=== PATIENT | female | born 1990 | race Caucasian/White ===

== ENCOUNTER 2017-07-19 19:22 | Emergency (ER) | payer MEDICAID ==
[~2017-07-19] VITALS: Ht 144.8 cm; Wt 53.1 kg
[2017-07-19 19:51] VITALS: BP 104/58
[2017-07-19 20:36] LABS: Basophils # (auto) 0 uL; Basophils % (auto) 0.2 % (0.0-2.0); Eosinophils # (auto) 0 uL; Eosinophils % (auto) 0.2 % (0.0-7.0); Hemoglobin 14.1 g/dL (12.2-16.2); Lymphocytes # (auto) 2.3 uL; Lymphocytes % (auto) 31.7 % (10.0-50.0); Mean Corpuscular Hemoglobin 30.9 pg (28.0-32.0); Mean Corpuscular Hgb Conc. 33.6 g/dL (32.0-36.0); Mean Corpuscular Volume 91.8 fL (80.0-100.0); Mean Platelet Volume 8.6 fL (6.9-10.8); Monocytes # (auto) 0.5 uL; Monocytes % (auto) 6.5 % (0.0-12.0); Neutrophils # (auto) 4.5 uL; Neutrophils % (auto) 61.4 % (37.0-80.0); Nucleated Red Blood Cells % 0.2 %; Platelet Count (auto) 212 10^3/uL (140-450); Red Cell Distribution Width 12.8 % (11.8-14.3); White Blood Cell 7.3 10^3/uL (4.4-10.8)
[2017-07-19 20:54] LABS: Albumin 4.3 g/dL (3.4-5.0); BUN/Creatinine Ratio 9.8; Calcium 8.9 mg/dL (8.5-10.1); Potassium 3.7 mmol/L (3.5-5.1)
[2017-07-19 20:56] LABS: Bilirubin, Total 1.4 mg/dL (0.2-1.0); Total Protein 8.5 g/dL (6.4-8.2)
[2017-07-19 22:22] LABS: Urine Bilirubin Negative (Negative); Urine Blood TRACE /uL (Negative); Urine Color Yellow (Yellow); Urine Glucose Normal (Normal); Urine Ketone 1+ (Negative); Urine Mucus MODERATE (None Seen); Urine Nitrite Negative (Negative); Urine RBC 1 /hpf (0 - 4); Urine Squamous Epithelial Cell MOD /hpf (<5); Urine Urobilinogen Normal (Negative); Urine pH 5.5 (5.0-8.0)
[2017-07-20] MEDS ORDERED: SODIUM CHLORIDE 0.9% 1,000 ML IV ONE (00:45)
[2017-07-20] MEDS ORDERED: HYDROmorphone HCL 2 MG/ML VL IV ONE (00:45)
[2017-07-20] MEDS ORDERED: ONDANSETRON HCL 4 MG/2 ML VIAL IV ONE ×2 (00:45→02:15)
[2017-07-20] MEDS ORDERED: PROMETHAZINE HCL 25 MG/ML 1ML IV ONE (02:30)
== END 2017-07-20 03:16 | disposition home or self-care (01) ==
LOC: ER 19:30
DX: N83.201 Unspecified ovarian cyst, right side (principal); K59.00 Constipation, unspecified
CPT/HCPCS: 36415; 74176; 80053; 81001; 81025; 82150; 83690; 85025; 96361; 96374; 96375; 96376; 99285; J1170; J2405; J2550; J7030

== ENCOUNTER 2021-09-10 17:39 | Emergency (ER) | payer MEDICAID ==
[~2021-09-10] VITALS: Ht 144.8 cm; Wt 53.1 kg
[2021-09-10 17:47] VITALS: BP 134/78
[2021-09-10 19:31] LABS: Urine Bacteria NONE SEEN /hpf (None Seen); Urine Blood 1+ /uL (Negative); Urine Mucus MANY (None Seen); Urine WBC 14 /hpf (0 - 5)
== END 2021-09-11 04:47 | disposition left against medical advice (07) ==
LOC: ER 17:39
DX: R11.2 Nausea with vomiting, unspecified (principal); R19.7 Diarrhea, unspecified; R10.84 Generalized abdominal pain; Z53.21 Procedure and treatment not carried out due to patient leaving prior to being seen by health care provider
CPT/HCPCS: 81001; 81025